=== PATIENT | female | born 1995 ===

== ENCOUNTER 2017-11-21 10:43 | Emergency (ER) | payer SELFPAY ==
[2017-11-21 11:29] VITALS: BP 148/96
[2017-11-21 11:57] LABS: Bacteria,Urine 1+ /HPF (Negative); Bilirubin,Urine NEG (Negative); Blood,Urine MOD (Negative); Color,Urine Yellow (Yellow); Mucus,Urine FEW /HPF; Protein,Urine <15 mg/dL mg/dL (Negative); Urobilinogen,Urine < 2.0 mg/dL (<2.0)
== END 2017-11-21 12:30 | disposition left against medical advice (07) ==
LOC: ED 10:43
DX: R10.9 Unspecified abdominal pain (principal); R11.10 Vomiting, unspecified; Z53.21 Procedure and treatment not carried out due to patient leaving prior to being seen by health care provider
CPT/HCPCS: 81001